=== PATIENT | male | born 1980 | race African-American/Black ===

== ENCOUNTER 2020-12-08 22:11 | Emergency (ER) | payer SELFPAY ==
[2020-12-08] MEDS ORDERED: Lidocaine/Transparent Dressing 1 EACH KIT ONE (22:32)
[2020-12-08] MEDS ORDERED: Boostrix 0.5 ML (Tdap) VIAL ONE (22:33)
== END 2020-12-08 23:37 | disposition home or self-care (01) ==
LOC: CSHERS 22:11
DX: S01.01XA Laceration without foreign body of scalp, initial encounter (principal); Z23 Encounter for immunization; W18.30XA Fall on same level, unspecified, initial encounter
CPT/HCPCS: 12002; 70450; 90471; 90715

== ENCOUNTER 2021-01-18 13:42 | Emergency (ER) | payer SELFPAY | END 2021-01-18 17:38 | disposition left against medical advice (07) | LOC: CSHERS 13:42 | DX: Z53.21 Procedure and treatment not carried out due to patient leaving prior to being seen by health care provider (principal) ==

== ENCOUNTER 2022-11-26 17:15 | Emergency (ER) | payer OTHER, SELFPAY ==
[2022-11-26] MEDS ORDERED: Ibuprofen 200 MG TAB ONE (19:38)
[2022-11-26] MEDS ORDERED: Cyclobenzaprine 10 MG TAB ONE (19:38)
== END 2022-11-26 19:44 | disposition home or self-care (01) ==
LOC: CSHERS 17:15
DX: S16.1XXA Strain of muscle, fascia and tendon at neck level, initial encounter (principal); V43.62XA Car passenger injured in collision with other type car in traffic accident, initial encounter; Y92.410 Unspecified street and highway as the place of occurrence of the external cause
CPT/HCPCS: 72040; 72072